=== PATIENT | female | born 1980 | race African-American/Black ===

== ENCOUNTER 2017-04-01 14:14 | Emergency (ER) | payer BC ==
[~2017-04-01] VITALS: Ht 172.7 cm; Wt 66.2 kg
--- NOTE | 2017-04-01 14:49 | NUR ---
37 YO FEMALE BB SELF. PATIENT C/O RT FOOT PAIN, S/P GLASS TUPPERWARE FELL TO FOOT POSSIBLE GLASS TO FOOT. PATIENT SKIN WARM AND DRY, RESP EVEN AND UNLABORED. AWAITING ORDERS FROM PROVIDER
[2017-04-01] MEDS ORDERED: IBUPROFEN 600 MG TABLET PO ONE ×2 (14:55→15:00)
[2017-04-01] MEDS ORDERED: TDAP [DIPH/PERTUSSIS/TET] 0.5 ML VIAL IM ONE ×2 (14:55→15:00)
[2017-04-01] MEDS ORDERED: LIDOCAINE HCL/MPF 1% 30 ML VIAL IJ ONE (16:14)
[2017-04-01 17:15] VITALS: BP 110/65
--- NOTE | 2017-04-01 17:16 | NUR ---
Patient discharged to home in stable condition. Written and verbal after care instructions given. Patient verbalizes understanding of instruction. PT ambulatory with a steady gait VITAL SIGNS UPDATED.
== END 2017-04-01 17:32 | disposition home or self-care (01) ==
LOC: ER 14:25
DX: S91.011A Laceration without foreign body, right ankle, initial encounter (principal); M25.562 Pain in left knee; W20.8XXA Other cause of strike by thrown, projected or falling object, initial encounter; Y93.89 Activity, other specified; Y92.89 Other specified places as the place of occurrence of the external cause; Y99.8 Other external cause status
CPT/HCPCS: 12001; 73564; 73610; 90471; 90715; 99284; A4606; A6402 ×2; J3490; Z7610

== ENCOUNTER 2017-04-03 11:32 | Emergency (ER) | payer BC ==
[~2017-04-03] VITALS: Ht 172.7 cm; Wt 65.8 kg
[2017-04-03 11:32] VITALS: BP 135/68
== END 2017-04-03 12:00 | disposition home or self-care (01) ==
LOC: ER 11:34
DX: S81.811D Laceration without foreign body, right lower leg, subsequent encounter (principal); X58.XXXD Exposure to other specified factors, subsequent encounter; Z90.89 Acquired absence of other organs
CPT/HCPCS: 99281; A4606; Z7610; Z7502

== ENCOUNTER 2017-04-10 08:54 | Emergency (ER) | payer BC ==
[~2017-04-10] VITALS: Ht 172.7 cm; Wt 65.8 kg
[2017-04-10 08:57] VITALS: BP 117/70
== END 2017-04-10 09:24 | disposition home or self-care (01) ==
LOC: ER 08:57
DX: S91.311D Laceration without foreign body, right foot, subsequent encounter (principal); Z90.89 Acquired absence of other organs; W25.XXXD Contact with sharp glass, subsequent encounter
CPT/HCPCS: A4606; Z7502; Z7610